=== PATIENT | female | born 1980 | race Caucasian/White ===

== ENCOUNTER 2021-02-28 14:28 | Emergency (ER) | payer BC, OTHER ==
[~2021-02-28] VITALS: Ht 170.2 cm; Wt 73.9 kg
[2021-02-28 14:45] VITALS: BP_SYST 153
--- NOTE | 2021-02-28 15:00 | NUR ---
Placed in room 6 . Placed on cafeteria monitor, blood pressure machine and pulse oximeter. To gown for exam. Side rails up.
--- NOTE | 2021-02-28 15:02 | NUR ---
Pt came into ER with complaint of left lower abdominal pain 7/10 [id number] with nausea and diarrhea. Pt denies vomitting. Pt last BM today and no odor, pain or blood with voiding. Pt is resting in gurney attached to monitor Vital signs holding.
--- NOTE | 2021-02-28 15:17 | NUR ---
[facility] at bedside examining patient.
--- NOTE | 2021-02-28 15:40 | NUR ---
Lab at bedside.
--- NOTE | 2021-02-28 15:50 | NUR ---
Pt ambulated to ultrasound accompanied by tech.
[2021-02-28 16:03] LABS: BASOPHILS % (AUTO) 0.3 % (0.0-2.0); EOSINOPHILS # (AUTO) 0.1 K/uL (0.0-0.4); EOSINOPHILS % (AUTO) 1.1 % (0.0-4.0); HEMATOCRIT 42.7 % (36-48); HEMOGLOBIN 15.1 g/dL (12.0-16.0); LYMPHOCYTES # (AUTO) 2.6 K/uL (1.0-5.5); LYMPHOCYTES % (AUTO) 23.1 % (20.5-51.5); MEAN CORPUSCULAR HEMOGLOBIN 33 pg (27-31); MEAN CORPUSCULAR HGB CONC 35 % (32-36); MEAN CORPUSCULAR VOLUME 92 fL (79.0-98.0); MONOCYTES # (AUTO) 0.8 K/uL (0.0-1.0); MONOCYTES % (AUTO) 7.2 % (1.7-9.3); NEUTROPHILS # (AUTO) 7.7 K/uL (1.8-7.7); NEUTROPHILS % (AUTO) 68.3 % (40.0-70.0); PLATELET COUNT (AUTO) 301 K/uL (130-430); RED BLOOD CELL COUNT(AUTO) 4.62 MIL/uL (4.2-6.2); RED CELL DISTRIBUTION WIDTH 13.1 % (9.0-15.0); WHITE BLOOD COUNT (AUTO) 11.3 K/uL (4.8-10.8)
[2021-02-28 16:10] LABS: CALCIUM 8.9 mg/dL (8.4-11.0); CREATININE 0.63 mg/dL (0.55-1.30); POTASSIUM 3.9 mmol/L (3.5-5.1)
[2021-02-28 16:15] LABS: TOTAL BILIRUBIN 0.7 mg/dL (0.0-1.0)
--- NOTE | 2021-02-28 16:27 | NUR ---
Pt back from ultrasound. Resting in [facility].
--- NOTE | 2021-02-28 17:32 | NUR ---
Urine collected and sent to lab.
[2021-02-28 17:35] LABS: BILIRUBIN,URINE NEGATIVE (NEGATIVE); BLOOD, URINE 3+ (NEGATIVE); CLARITY/URINE CLEAR (CLEAR); COLOR,URINE YELLOW (YELLOW); GLUCOSE,URINE NEGATIVE (NEGATIVE); KETONES,URINE 3+ (NEGATIVE); LEUKOCYTE ESTERASE ,URINE TRACE (NEGATIVE); NITRITE, URINE NEGATIVE (NEGATIVE); PROTEIN URINE NEGATIVE (NEGATIVE); UROBILINOGEN,URINE 0.2 (0.2-1.0)
[2021-02-28 17:44] LABS: BACTERIA,URINE FEW /HPF (None Seen); RBC,URINE NONE SEEN /HPF (0-3)
[2021-02-28 17:45] LABS: MUCUS,URINE None Seen /LPF (None Seen); YEAST,URINE Few /HPF (None Seen)
--- NOTE | 2021-02-28 18:13 | NUR ---
Pt ambulated to restroom independently. Gait steady and straight.
--- NOTE | 2021-02-28 18:58 | NUR ---
Dr. Hayes at bedside speaking with pt.
--- NOTE | 2021-02-28 19:08 | NUR ---
Care endorsed to Eliecer BEY.
--- NOTE | 2021-02-28 19:55 | NUR ---
just received CD imagine from Radiology
[2021-02-28 20:00] VITALS: BP_SYST 136
--- NOTE | 2021-02-28 20:00 | NUR ---
Patient given written and verbal discharge instructions and verbalizes understanding. ER MD discussed with patient the results and treatment provided. Patient in stable condition. ID arm band removed. IV catheter removed intact and dressing applied, no active bleeding. Patient educated on pain management and to follow up with PMD. Pain Scale 0/10 Opportunity for questions provided and answered.
== END 2021-02-28 20:00 | disposition home or self-care (01) ==
LOC: SED 14:28
DX: N83.201 Unspecified ovarian cyst, right side (principal); N80.9 Endometriosis, unspecified; Z88.5 Allergy status to narcotic agent; Z88.6 Allergy status to analgesic agent
CPT/HCPCS: 36415; 76376; 76830-TC; 76857; 80053; 81000; 83690; 85025; 99285